=== PATIENT | male | born 1970 | race Caucasian/White ===

== ENCOUNTER → 2018-06-30 | Outpatient (CLI) | payer BC ==
[2018-06-30 09:07] LABS: POTASSIUM 4.5 mmol/L (3.5-5.1)
== END ==
LOC: M.LAB 05:23
PROVIDERS: Student in an Organized Health Care Education/Training Program
DX: Z01.812 Encounter for preprocedural laboratory examination (principal); E11.9 Type 2 diabetes mellitus without complications

== ENCOUNTER → 2019-08-23 | Outpatient (CLI) | payer OTHER ==
[2019-08-23 11:37] LABS: HEMATOCRIT 47.5 % (42.0-52.0); HEMOGLOBIN 16.9 gm/dL (14.0-18.0); MCH 31.5 pg (26.0-34.0); MCHC 35.6 g/dL (28.0-37.0); MCV 88.6 fL (80.0-100.0); MPV 8.6 fl. (7.2-11.1); NUCLEATED RBCS 0 /100WBC; PLATELET COUNT* 249 thou/uL (150-400); RBC 5.36 mil/uL (4.50-6.00); RDW-CV 14.4 % (10.5-14.5); WBC 6.4 thou/uL (4.0-11.0)
[2019-08-23 11:51] LABS: ALBUMIN 4.4 g/dL (3.4-5.0); CALCIUM 9.8 mg/dL (8.5-10.1); CREATININE 0.9 mg/dL (0.6-1.3); TOTAL BILIRUBIN 0.7 mg/dL (<0.1-1.0); TOTAL PROTEIN 7.6 g/dL (6.4-8.2)
[2019-08-23 11:51] LABS: URINE BILIRUBIN NEGATIVE (Negative); URINE BLOOD NEGATIVE (Negative); URINE CLARITY CLEAR; URINE COLOR YELLOW; URINE GLUCOSE-RANDOM NEGATIVE (Negative); URINE KETONES NEGATIVE (Negative); URINE LEUKOCYTES-REFLEX NEGATIVE (Negative); URINE NITRITE-REFLEX NEGATIVE (Negative); URINE PROTEIN NEGATIVE (Negative); URINE SPECIFIC GRAVITY >= 1.030 (1.005-1.030); URINE UROBILINOGEN 0.2 E.U./dl (0.2-1.0)
[2019-08-23 12:23] LABS: ABSOLUTE EOSINOPHILS 0.1 thou/uL (0.0-0.7); ABSOLUTE LYMPHOCYTES 2.3 thou/uL (0.8-5.3); ABSOLUTE MONOCYTES 0.3 thou/uL (0.0-1.2); ABSOLUTE NEUTROPHILS 3.7 thou/uL (1.6-8.1); PLATELET ESTIMATE ADEQUATE
--- NOTE | 2019-08-28 14:10 | HEMONC ---
[address] [address] HEMATOLOGY ONCOLOGY NOTE Name: NACHO BLANCAS Room: [facility]#: [id number] Admission: 08/23/19 Attend Phys: Lea Narayanan MD Discharge: Date of : 72 Report #: [id number] THIS REPORT FOR: //name// CC: Lea Coffey DO DATE OF SERVICE: 08/23/2019 REFERRING PHYSICIAN: Dr. Harsh Coffey. REASON FOR CONSULTATION: Polycythemia. SUBJECTIVE: A 48-year-old male, who has been diagnosed with sleep apnea; however, he has not been using his CPAP machine, was evaluated because of routine blood work, which showed his hemoglobin was elevated at the level of 18.3 with hematocrit of 52.7. Otherwise, his WBC and platelet count within normal range. The patient reports mild intermittent morning headaches; however, he denies any itching, redness of his palms and soles, denies any weight changes or fatigue. The patient denies any night sweats or early satiety. REVIEW OF SYSTEMS: All systems were reviewed. It was negative except the above. PAST MEDICAL HISTORY: Hypertension, dyslipidemia, GERD, borderline diabetes. PAST SURGICAL HISTORY: Orthopedic surgery involving the toe, left meniscus tear in 2019. SOCIAL HISTORY: He does not smoke, does not drink alcohol. ALLERGIES: No known allergies. MEDICATIONS: Allopurinol 300 mg p.o. daily, hydrochlorothiazide 12.5 mg p.o. daily, Lipitor 10 mg p.o. daily, metformin 500 mg p.o. daily, cimetidine 400 mg p.o. daily. PHYSICAL EXAMINATION: VITAL SIGNS: Today, blood pressure is 130/84, pulse is 80, respirations 18, temperature is 98.7, sat is 95% on room air. GENERAL: The patient was sitting in chair, was not in acute distress. LUNGS: Clear to auscultations bilaterally. No wheezing or crackles. HEART: Regular rate and rhythm. S1, S2 within normal limits. ABDOMEN: Soft, nontender, did not appreciate any hepatosplenomegaly. EXTREMITIES: No edema, no cyanosis, [place] [address] HEMATOLOGY ONCOLOGY NOTE Name: NACHO BLANCAS Room: [facility]#: [id number] Admission: 08/23/19 Attend Phys: Lea Narayanan MD Discharge: Date of : 72 Report #: [id number] LABORATORY DATA: Most recent labs on 08/19/2019, WBC 4.3, hemoglobin 18.3, hematocrit 52.7, and platelet count is 200. Serum creatinine 0.8, sodium is 142, potassium is 4.1, calcium is 9.5, albumin of 4.6, total bilirubin 0.5, and alkaline phosphatase is 83. AST is 32, ALT is elevated. ASSESSMENT AND PLAN: A 48-year-old male, who is a nonsmoker; however, he had sleep apnea. He is not using his CPAP machine, was evaluated because of a polycythemia. Most likely, this is related to secondary polycythemia due to untreated obstructive sleep apnea and chronic hypoxia. However, I would like to obtain workup for polycythemia vera including JAK2 mutation, erythropoietin level. We will obtain also urinalysis and CT scan of the abdomen and pelvis with contrast. The patient is a nonsmoker. <ELECTRONICALLY SIGNED> By: Lea Narayanan MD 08/28/19 1410 [id number] Narayanan MD /nt
== END ==
LOC: M.RTH 10:22
PROVIDERS: Internal Medicine
DX: G47.30 Sleep apnea, unspecified (principal); D45 Polycythemia vera; I10 Essential (primary) hypertension; K21.9 Gastro-esophageal reflux disease without esophagitis; R73.03 Prediabetes

== ENCOUNTER → 2019-08-30 | Outpatient (CLI) | payer OTHER | LOC: M.CT 08:12 | DX: K76.0 Fatty (change of) liver, not elsewhere classified (principal); K80.80 Other cholelithiasis without obstruction; K57.30 Diverticulosis of large intestine without perforation or abscess without bleeding ==

== ENCOUNTER → 2019-09-20 | Outpatient (CLI) | payer OTHER ==
--- NOTE | ~2019-09-20 | HEMONC ---
[address] [address] HEMATOLOGY ONCOLOGY NOTE Name: NACHO BLANCAS Room: [facility]#: [id number] Admission: 09/20/19 Attend Phys: Lea Narayanan MD Discharge: Date of : 72 Report #: [id number] THIS REPORT FOR: //name// CC: Lea Coffey DO DATE OF SERVICE: 09/20/2019 PRIMARY CARE PHYSICIAN: Harsh Coffey DO DIAGNOSIS: Secondary polycythemia. SUBJECTIVE: The patient presented today as follow up on his workup. I did repeat his hemoglobin, which got normalized to 17.0 with a hematocrit of 48.5. Also, his JAK2 mutation came back negative with a normal level of erythropoietin. The patient continues to be asymptomatic at this point. Also, CT scan of the abdomen showed no evidence of tumor; however, fatty infiltrates of the liver with a cholelithiasis and diverticulosis. REVIEW OF SYSTEMS: All systems reviewed. It was negative except the above. PAST MEDICAL, SOCIAL, AND FAMILY HISTORY: Unchanged from last visit. MEDICATION LIST: Has been reviewed. PHYSICAL EXAMINATION: VITAL SIGNS: Today, blood pressure is 147/84, pulse 90, respirations 20, temperature is 97.1, sat is 97% on room air. GENERAL: The patient was sitting in chair, was not in acute distress. LUNGS: Clear to auscultations bilaterally. ASSESSMENT AND PLAN: The patient is a 48-year-old male who has been evaluated because of mild secondary polycythemia. Workup for myeloproliferative neoplasm came back negative including JAK2 mutation and normal level of erythropoietin level. The etiology of his polycythemia could be related to sleep apnea; however, repeated labs showed normalization of his CBC. No further workup is needed at this point. By: [id number] Narayanan MD /nt
== END ==
LOC: M.RTH 04:18
DX: D75.1 Secondary polycythemia (principal)